=== PATIENT | male | born 1940 | race Caucasian/White ===

== ENCOUNTER 2020-10-17 10:18 | Observation (INO) | payer MEDICARE ==
[~2020-10-17] VITALS: Ht 177.8 cm; Wt 69.2 kg
[2020-10-17 11:15] LABS: BASOPHILS ABSOLUTE AUTO 0.04 K/mm3 (0.00-0.23); BASOPHILS PERCENT AUTO 0 % (0-2); EOSINOPHILS ABSOLUTE AUTO 0.21 K/mm3 (0.00-0.68); EOSINOPHILS PERCENT AUTO 2 % (0-6); Hematocrit 42.5 % (37.0-53.0); Hemoglobin 14.2 g/dL (13.5-17.5); IMMATURE GRAN ABSOLUTE AUTO 0.02 K/mm3 (0.00-0.10); IMMATURE GRAN PERCENT AUTO 0 % (0-1); LYMPHOCYTES ABSOLUTE AUTO 1.19 K/mm3 (0.84-5.20); LYMPHOCYTES PERCENT AUTO 13 % (21-46); MONOCYTES ABSOLUTE AUTO 0.64 K/mm3 (0.16-1.47); MONOCYTES PERCENT AUTO 7 % (4-13); Mean Corpuscular HGB 29.4 pg (26.0-34.0); Mean Corpuscular HGB Conc 33.4 g/dL (31.5-36.5); Mean Corpuscular Volume 88 fL (80-100); Mean Platelet Volume 10.7 fL (9.1-12.4); NEUTROPHILS ABSOLUTE AUTO 7.39 K/mm3 (1.96-9.15); NEUTROPHILS PERCENT AUTO 78 % (41-73); Platelet Count 211 K/mm3 (150-400); RDW Coefficient Variation 14.2 % (11.7-14.2); RDW Standard Deviation 45.4 fL (35.1-46.3); Red Blood Cell Count 4.83 M/mm3 (4.30-5.90); White Blood Cell Count 9.49 K/mm3 (4.00-11.30)
[2020-10-17 11:34] LABS: Alanine Aminotransfer (ALT/SGP 20 U/L (12-78); Albumin, Blood 3.6 g/dL (3.4-5.0); Albumin/Globulin Ratio 0.9 (0.8-1.8); Alk Phos 63 U/L (50-136); Anion Gap 3 mmol/L (6-16); Aspartate Aminotrans (AST/SGOT 16 U/L (12-37); Bilirubin, Total 0.3 mg/dL (0.1-1.0); Blood Urea Nitrogen 30 mg/dL (8-24); Bun/Creatinine Ratio 18.4 (12.0-20.0); CO2, Blood 26 mmol/L (21-32); Calcium, Blood 9.8 mg/dL (8.5-10.1); Chloride, Blood 113 mmol/L (98-108); Creatinine, Blood 1.63 mg/dL (0.60-1.20); Globulin, Blood 3.8 g/dL (2.2-4.0); Glomerular Filtration Rate 43 (60-); Glucose, Blood 106 mg/dL (70-99); Sodium, Blood 142 mmol/L (136-145); Total Protein, Blood 7.4 g/dL (6.4-8.2)
[2020-10-17 11:36] LABS: Troponin I <0.015 ng/mL (0.000-0.040)
--- NOTE | 2020-10-17 18:27 | NUR ---
PT ADMITTED THIS AFT/JULIANA. NO C/O PAIN OR PRESSURE OR H/ACHE. STATES NO DIZZINESS OR SYMPTOMS EXCEPTING LIGHT TINGLING IN RT HAND. DID MED FOR HTN AT 1650, BROUGT DOWN FROM 200/92 TO 139/79. WAS NOTIFIED TO OBTAIN MEDS. PT PLEASANT COOP TALKATIVE. JOVIAL. ADMIT DONE EXCEPT FOR HISTORY. NO NEW CONCERNS NOTED. BED IN LOW POSITION, CALL LITE IN REACH, CALLS APPROP
[2020-10-18 01:27] LABS: Source, Urine Clean Catch
[2020-10-18 01:30] LABS: Bilirubin, Urine Neg (Neg); Blood, Urine Neg (Neg); Glucose Qualitative, Urine Neg (Neg); Ketones, Urine Neg (Neg); Leukocyte Esterase, Urine Neg (Neg); Nitrite, Urine Neg (Neg); Protein, Urine Neg (Neg); Urobilinogen, Urine NORM (Normal)
[2020-10-18 01:35] LABS: Appearance, Urine Clear (Clear); Color, Urine Pale Yellow (P-Yellow)
[2020-10-18 05:11] LABS: BASOPHILS ABSOLUTE AUTO 0.03 K/mm3 (0.00-0.23); BASOPHILS PERCENT AUTO 0 % (0-2); EOSINOPHILS ABSOLUTE AUTO 0.04 K/mm3 (0.00-0.68); EOSINOPHILS PERCENT AUTO 0 % (0-6); Hemoglobin 13.8 g/dL (13.5-17.5); IMMATURE GRAN ABSOLUTE AUTO 0.03 K/mm3 (0.00-0.10); IMMATURE GRAN PERCENT AUTO 0 % (0-1); LYMPHOCYTES ABSOLUTE AUTO 1.25 K/mm3 (0.84-5.20); LYMPHOCYTES PERCENT AUTO 12 % (21-46); MONOCYTES ABSOLUTE AUTO 0.62 K/mm3 (0.16-1.47); MONOCYTES PERCENT AUTO 6 % (4-13); Mean Corpuscular HGB 29.7 pg (26.0-34.0); Mean Corpuscular HGB Conc 33.7 g/dL (31.5-36.5); Mean Corpuscular Volume 88 fL (80-100); Mean Platelet Volume 11.5 fL (9.1-12.4); NEUTROPHILS ABSOLUTE AUTO 8.64 K/mm3 (1.96-9.15); NEUTROPHILS PERCENT AUTO 81 % (41-73); Platelet Count 204 K/mm3 (150-400); RDW Coefficient Variation 14.6 % (11.7-14.2); RDW Standard Deviation 46.6 fL (35.1-46.3); Red Blood Cell Count 4.64 M/mm3 (4.30-5.90); White Blood Cell Count 10.61 K/mm3 (4.00-11.30)
[2020-10-18 05:39] LABS: LDL/HDL RATIO 4.9; Very Low Density Lipoprot Chol 37 mg/dL (6-32)
[2020-10-18 05:40] LABS: Alanine Aminotransfer (ALT/SGP 15 U/L (12-78); Albumin, Blood 3.4 g/dL (3.4-5.0); Alk Phos 57 U/L (50-136); Anion Gap 7 mmol/L (6-16); Aspartate Aminotrans (AST/SGOT 9 U/L (12-37); Bilirubin, Total 0.6 mg/dL (0.1-1.0); Blood Urea Nitrogen 33 mg/dL (8-24); CHOL/HDL RATIO 6.8; CO2, Blood 23 mmol/L (21-32); Calcium, Blood 9.3 mg/dL (8.5-10.1); Chloride, Blood 109 mmol/L (98-108); Cholesterol 285 mg/dL (50-200); Creatinine, Blood 1.65 mg/dL (0.60-1.20); Globulin, Blood 3.4 g/dL (2.2-4.0); Glomerular Filtration Rate 43 (60-); Glucose, Blood 107 mg/dL (70-99); HDL Cholesterol 42 mg/dL (>39); Low Density Lipoprotein Chol 206 mg/dL (0-110); Potassium, Blood 4.2 mmol/L (3.5-5.5); Sodium, Blood 139 mmol/L (136-145); Total Protein, Blood 6.8 g/dL (6.4-8.2); Triglycerides 185 mg/dL (30-160)
--- NOTE | 2020-10-18 06:21 | NUR ---
SHIFT SUMMARY A/O, ABLE TO MAKE NEEDS KNOWN. COOPERATIVE WITH CARE. CALLS AND ANSWERS QUESTIONS APPROPRIATELY. NO C/O PAIN/DISCOMFORT. VSS/AFEBRILE. DID NOT APPEAR TO REST MUCH OVERNIGHT. TELE RUNNING SR IN 80s. NO ACUTE CHANGES NOTED. INDEPENDENT IN ROOM. BED IN LOWEST POSITION. CALL LIGHT AND BELONGINGS WITHIN REACH. REPORT TO ONCOMING RN.
--- NOTE | 2020-10-18 12:46 | NUR ---
echocardiogram completed
[2020-10-18] MEDS ORDERED: AMLO10 PO (14:41)
[2020-10-18] MEDS ORDERED: ASPI81CH PO (14:42)
[2020-10-18] MEDS ORDERED: Pravastatin Sod40 MG PO (14:43)
--- NOTE | 2020-10-18 15:21 | NUR ---
DISCHARGE DISCHARGE INSTRUCTIONS, FOLLOW UP APPOINTMENT AND MEDICATION LIST REVIEWED WITH PT AND HIS SPOUSE. QUESTIONS/CONCERNS ANSWERED. PT AND HIS SPOUSE VERBALLY INDICATED UNDERSTANDING OF ALL INSTRUCTIONS RECEIVED. ESCORTED OUT VIA W/C BY DISCHARGE VOLUNTEER.
--- NOTE | 2020-10-19 09:32 | NUR ---
ADMIT: 10/17/20 DISCHARGE: 10/19/20 DX: Numbness/tingling, HTN CC: Vani Sloan RESIDENCE: [address] [place] [address]. [id number]: Manish, Spouse / Partner, PJ: HTN, see listDME: NoneCCM: NoneHOME HEALTH: None Update 10/19/20: Pt. discharged yesterday evening. Transition of care team at [facility] will follow-up with pt. to schedule visit with pcp. Per Dr. Sheffield's notes, pt. to follow-up with PCP within 2 weeks.
== END 2020-10-18 15:18 | disposition home or self-care (01) ==
LOC: ER 10:18 → MEDS 10:19
PROVIDERS: Emergency Medicine; ADMIT Internal Medicine
DX: I16.0 Hypertensive urgency (principal); R20.2 Paresthesia of skin; R20.0 Anesthesia of skin; I12.9 Hypertensive chronic kidney disease with stage 1 through stage 4 chronic kidney disease, or unspecified chronic kidney disease; N18.30 Chronic kidney disease, stage 3 unspecified; E78.5 Hyperlipidemia, unspecified; N17.9 Acute kidney failure, unspecified
CPT/HCPCS: 36415; 70450; 70551; 80053; 80061; 81003; 84484; 85025; 93005; 93010; 93306; 96372; 96374; 96376; 97161; 97530; 99285-25; A9270; G0378; J0360; J1650

== ENCOUNTER → 2021-07-07 | Outpatient (CLI) | payer MEDICARE ==
[~2021-07-07] MED LIST: AMLO10 PO; ASPI81CH PO; Pravastatin Sod40 MG PO
[2021-07-09 09:58] LABS: Stool Occult Bld Immuno 1 Positive (NEGATIVE)
== END | disposition home or self-care (01) ==
LOC: LAB SHORT 15:30
PROVIDERS: Family Medicine
DX: Z12.11 Encounter for screening for malignant neoplasm of colon (principal)
CPT/HCPCS: G0328

== ENCOUNTER 2023-02-18 08:11 | Day surgery (SDC) | payer MEDICARE ==
[~2023-02-18] VITALS: Ht 177.8 cm; Wt 70.5 kg
[2023-02-18] MEDS ORDERED: LISI20 PO (08:28)
[2023-02-18] MEDS ORDERED: METO50ER PO (08:28)
[2023-02-18] MEDS ORDERED: TAMS.4ER PO (08:29)
--- NOTE | 2023-02-18 08:37 | NUR ---
02/18/23 0837 Eileen Ramirez TETRACAINE DROP IN LEFT EYE AT 0828. PLEDGET PLACED IN LEFT EYE AT 0829. PT TOLERATED WELL.
[2023-02-18 09:31] VITALS: BP 159/58
--- NOTE | 2023-02-18 09:51 | NUR ---
02/18/23 0951 ANA KAMARA IV REMOVED, WNL. YAN WELL. CANNULA INTACT.
== END 2023-02-18 09:45 | disposition home or self-care (01) ==
LOC: ORSCSDS 08:11
PROVIDERS: Student in an Organized Health Care Education/Training Program
PROC: 08RK3JZ Replacement of Left Lens with Synthetic Substitute, Percutaneous Approach (ICD-10-PCS; principal; 2023-02-18 09:30)
DX: H25.13 Age-related nuclear cataract, bilateral (principal); H21.81 Floppy iris syndrome; Z87.891 Personal history of nicotine dependence; I12.9 Hypertensive chronic kidney disease with stage 1 through stage 4 chronic kidney disease, or unspecified chronic kidney disease; N18.9 Chronic kidney disease, unspecified; E78.5 Hyperlipidemia, unspecified; J44.9 Chronic obstructive pulmonary disease, unspecified; Z86.73 Personal history of transient ischemic attack (TIA), and cerebral infarction without residual deficits; Z79.899 Other long term (current) drug therapy; I25.10 Atherosclerotic heart disease of native coronary artery without angina pectoris
CPT/HCPCS: J2001; J3010; J7040; V2632

== ENCOUNTER 2023-03-04 08:12 | Day surgery (SDC) | payer MEDICARE ==
[~2023-03-04] VITALS: Ht 177.8 cm; Wt 70.3 kg
[~2023-03-04 08:12] MED LIST changes: +LISI20 PO; +METO50ER PO; +TAMS.4ER PO
--- NOTE | 2023-03-04 08:47 | NUR ---
03/04/23 0847 Lesley Lopez AT 0840 PLEDGET AT 0842
[2023-03-04 09:36] VITALS: BP 147/63
--- NOTE | 2023-03-04 09:56 | NUR ---
03/04/23 0956 Sean Salgado IV REMOVED INTACT. SITE WNL.
== END 2023-03-04 09:48 | disposition home or self-care (01) ==
LOC: ORSCSDS 08:12
PROVIDERS: Student in an Organized Health Care Education/Training Program
PROC: 08RJ3JZ Replacement of Right Lens with Synthetic Substitute, Percutaneous Approach (ICD-10-PCS; principal; 2023-03-04 09:30)
DX: H25.11 Age-related nuclear cataract, right eye (principal); Z96.1 Presence of intraocular lens; H21.81 Floppy iris syndrome; I12.9 Hypertensive chronic kidney disease with stage 1 through stage 4 chronic kidney disease, or unspecified chronic kidney disease; N18.9 Chronic kidney disease, unspecified; E78.5 Hyperlipidemia, unspecified; J44.9 Chronic obstructive pulmonary disease, unspecified; Z87.891 Personal history of nicotine dependence; H35.30 Unspecified macular degeneration; Z86.73 Personal history of transient ischemic attack (TIA), and cerebral infarction without residual deficits; Z79.899 Other long term (current) drug therapy
CPT/HCPCS: J2250; J3010; J7040; V2632

== ENCOUNTER → 2024-03-14 | Outpatient (CLI) | payer OTHER ==
[2024-03-14 09:28] LABS: BASOPHILS ABSOLUTE AUTO 0.04 K/mm3 (0.00-0.23); BASOPHILS PERCENT AUTO 0 % (0-2); EOSINOPHILS ABSOLUTE AUTO 0.22 K/mm3 (0.00-0.68); EOSINOPHILS PERCENT AUTO 2 % (0-6); Hematocrit 40.3 % (37.0-53.0); Hemoglobin 13.3 g/dL (13.5-17.5); IMMATURE GRAN ABSOLUTE AUTO 0.02 K/mm3 (0.00-0.10); IMMATURE GRAN PERCENT AUTO 0 % (0-1); LYMPHOCYTES ABSOLUTE AUTO 1.39 K/mm3 (0.84-5.20); LYMPHOCYTES PERCENT AUTO 14 % (21-46); MONOCYTES PERCENT AUTO 8 % (4-13); Mean Corpuscular HGB 29.2 pg (26.0-34.0); Mean Corpuscular Volume 89 fL (80-100); Mean Platelet Volume 10.2 fL (9.1-12.4); NEUTROPHILS ABSOLUTE AUTO 7.33 K/mm3 (1.96-9.15); NEUTROPHILS PERCENT AUTO 75 % (41-73); Platelet Count 228 K/mm3 (150-400); RDW Coefficient Variation 13.7 % (11.7-14.2); RDW Standard Deviation 44.1 fL (35.1-46.3); Red Blood Cell Count 4.55 M/mm3 (4.30-5.90)
[2024-03-14 09:50] LABS: Albumin, Blood 3.4 g/dL (3.4-5.0); Albumin/Globulin Ratio 0.9 (0.8-1.8); Bilirubin, Total 0.4 mg/dL (0.1-1.0); Bun/Creatinine Ratio 18.2 (12.0-20.0); Calcium, Blood 9.2 mg/dL (8.5-10.1); Creatinine, Blood 1.76 mg/dL (0.60-1.20); Globulin, Blood 3.7 g/dL (2.2-4.0); Potassium, Blood 4.4 mmol/L (3.5-5.5); Thyroid Stimulating Hormone 1.436 uIU/mL (0.360-4.800); Total Protein, Blood 7.1 g/dL (6.4-8.2)
== END ==
LOC: LAB 09:24 → LAB SHORT 09:24
PROVIDERS: Physician Assistant
DX: R20.2 Paresthesia of skin (principal); R53.83 Other fatigue
CPT/HCPCS: 80053; 84443; 85025